=== PATIENT | male | born 1950 | race Asian ===

== ENCOUNTER 2020-07-22 08:23 | Emergency (ER) | payer OTHER ==
[2020-07-22 08:40] VITALS: BP 166/65; PULSE 61; TEMP 98.2; BMI 20.1
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
== END 2020-07-22 09:49 | disposition home or self-care (01) ==
LOC: JER 08:23
DX: Z04.1 Encounter for examination and observation following transport accident (principal)
CPT/HCPCS: 99282-25